=== PATIENT | male | born 1960 | race African-American/Black ===

== ENCOUNTER 2024-03-14 00:03 | Emergency (ER) | payer SELFPAY ==
[2024-03-14 00:29] VITALS: BP 128/78
--- NOTE | 2024-03-14 01:27 | ED.GENMED ---
History of Present Illness
<Severiano Sanders MD - Last Filed: 03/14/24 01:30>
General
Chief Complaint: Fall
Source: patient
Exam Limitations: none
Time Seen by Provider: 03/14/24 00:19
History of Present Illness
History of Present Illness:
63-year-old [place] Complaining of some pain all over. Admits his primary issue is he is homeless. Denies headache loss of consciousness syncope chest pain shortness of breath abdominal pain etc.
Past History
<Severiano Sanders MD - Last Filed: 03/14/24 01:30>
Past History
ED Past Medical History: Psychiatric
ED Past Surgical History: None
Social History
Tobacco: Smoker
Alcohol: None
Personal: Single
Living: homeless
Employment: Not employed
Family History
Family History: Unable to obtain
Review of Systems
<Severiano Sanders MD - Last Filed: 03/14/24 01:30>
Review of Systems
All Other Systems: Not applicable
Constitutional: Denies fever or chills
Respiratory: Reports no symptoms
Cardiac: Reports no symptoms
ABD/GI: Reports no symptoms
Phy Exam
<Severiano Sanders MD - Last Filed: 03/14/24 01:30>
Physical Exam
Physical Exam:
GENERAL: Alert and oriented in no apparent distress. Mildly disheveled appearing. No signs of scalp trauma
EYE: Orbits normal.
NECK: Supple, nontender
ENT: Pharynx without erythema
CARDIAC: Regular rate and rhythm without any obvious murmurs.
LUNGS: Clear breath sounds,normal
ABDOMEN: Soft, without focal tenderness or distention
NEUROLOGICAL: Alert and oriented , grossly non-focal
SKIN: Warm and dry, no rash or lesion, no discoloration, skin intact.
MUSCULOSKELETAL: No edema,no deformity.Good color. No obvious bony tenderness or joint tenderness.
PSYCH: Cooperative. Somewhat rambling speech
Course
<Severiano Sanders MD - Last Filed: 03/14/24 01:30>
Orders/Labs/Results
Orders:
Orders
03/14/24 00:52
Case Management Consult ONCE
Case Management Consult: Discharge Planning
Vital Signs
Initial and Last Documented VS:
Initial Vital Signs
Temp Pulse Resp Pulse Ox
36.7 C 61 19 100
03/14/24 00:06 03/14/24 00:06 03/14/24 00:06 03/14/24 00:06
Last Documented Vital Signs
Temp Pulse Resp BP Pulse Ox
36.6 C 58 14 126/74 98
03/14/24 00:29 03/14/24 02:00 03/14/24 02:00 03/14/24 10:23 03/14/24 10:23
<Kevin Dinh DO - Last Filed: 03/14/24 10:26>
Orders/Labs/Results
Orders:
Orders
03/14/24 00:52
Case Management Consult ONCE
Case Management Consult: Discharge Planning
Vital Signs
Initial and Last Documented VS:
Initial Vital Signs
Temp Pulse Resp Pulse Ox
36.7 C 61 19 100
03/14/24 00:06 03/14/24 00:06 03/14/24 00:06 03/14/24 00:06
Last Documented Vital Signs
Temp Pulse Resp BP Pulse Ox
36.6 C 58 14 126/74 98
03/14/24 00:29 03/14/24 02:00 03/14/24 02:00 03/14/24 10:23 03/14/24 10:23
<Severiano Sanders MD - Last Filed: 03/14/24 01:30>
MDM/Problems Addressed
Differential Diagnosis Includes:
Patient has no signs of any acute trauma warranting radiologic testing. In addition he is medically stable and in no distress. No reason for screening labs at this time. Await case management for placement
<Severiano Sanders MD - Last Filed: 03/14/24 01:30>
Data Reviewed
Review of Other/Old Records Reveals: Labs and Records
<Kevin Dinh DO - Last Filed: 03/14/24 10:26>
*Critical Care Note
Total Time (30-74mins, 75-104mins- exclusive of procedures): Not Applicable
<Kevin Dinh DO - Last Filed: 03/14/24 10:26>
Update Note
Update Note:
I evaluated the patient at bedside at 9:40 AM. The patient is demanding to leave now. He was seen by social worker psychiatric who has offered him and trying to arrange for a Lyft at around 10:30 AM to get him to the motel. Patient is demanding to be
discharged at this time.
ED Attending Note
<Severiano Sanders MD - Last Filed: 03/14/24 01:30>
-
Portions of this chart may have been created with voice recognition software.� Occasional wrong word or��sound alike� substitutions may have occurred due to the inherent limitations of voice recognition software.
Discharge Plan
Departure
Patient Disposition: Home (Routine Discharge)
Date of Disposition: 03/14/24
Time of Disposition: 09:38
Patient with high blood pressure during this ER visit?: Yes
Discharge Problem:
Fall
Instructions: Fall Prevention for Older Adults
Prescriptions:
No Action
No Current Medications
Referrals:
NONE,* [Family Provider] -
Activity Restrictions/Additional Instructions:
Follow-up with primary care doctor. Return if worse or any other concerns.
Interventions
Interventions:
*Risk Screen - Suicide Last Done: 03/14/24 00:06
*General Assessment Last Done: 03/14/24 00:06
*Neglect/Abuse Screening Last Done: 03/14/24 00:06
ED- Fall Risk Assessment Last Done: 03/14/24 07:43
*ED COVID-19 Vaccine History Last Done: 03/14/24 00:29
*Nursing Disposition Last Done: 03/14/24 10:23
ED-Musculoskeletal Assessment Last Done: 03/14/24 00:29
ED- Neurological Assessment Last Done: 03/14/24 00:29
ED-Skin Assessment Last Done: 03/14/24 00:29
Discharge Date and Time
Discharge Date/Time: 03/14/24 10:24
Print Language: GREEK
[2024-03-14 02:00] VITALS: BP 129/78
--- NOTE | 2024-03-14 09:52 | CM ---
CM following re: discharge planning.
CM consulted to assist the pt with discharge planning in ED.
Reviewed pt's chart, met with pt.
Pt present sitting on the chair, AAOx3 with decreased in sight, decreased judgement, irritable mood, suspicious affect, chronic mental health component with homelessness attitude to get everything here and now. From the first minutes of the
interview pt made a strong request in a polite and irritable manner to get him to a motel or any possibility to rent a room for a night. Pt requested very limited space to this counter caser to engage the pt in conversation regarding his housing
situation, family support, etc. Pt made it very clear again and again stating: 'i am here not to answer your questions, you are here to help me to get to a motel'. Pt did show me he has money, shows his ID and address in [place]. Pt stated he has
been homeless just 3 nights, prior was staying at [facility] on [address] in [place] and pt made a strong request not to send him to [place]. Pt stated he had to fight for his independency with other homeless
people at the fpc. Pt asked not to send him to any fpc. Also, pt stated he is a and did not allow me to get any more information regarding possible VA benefits.
CM tried to obtain a voucher for 5 days staying at the hotel, called [facility] and left messages. Pt is aware of the above and made a strong request to send him to nearest motel. CM found
nearest motel: [facility] at [address] [place] [place] [address] [address], . CM called [facility] motel, confirmed they do have rooms available and the cost is 495.00 per day.
Pt is aware, expressed his agreement and pt requested help to get there. manager [employer] is scheduling a Lyft for 10:30 -11.00 am. CM provided pt with the [facility]. Pt expressed his great appreciation.
Pt will get a food box.
D/C plan: per pt's strong request, [facility]. Lyft to transport.
[2024-03-14 10:23] VITALS: BP 126/74
== END 2024-03-14 10:24 | disposition home or self-care (01) ==
LOC: EMR 00:03
PROVIDERS: EMERGENCY PHYSICIAN Emergency Medicine
DX: Z04.89 Encounter for examination and observation for other specified reasons (principal); W19.XXXA Unspecified fall, initial encounter; F17.200 Nicotine dependence, unspecified, uncomplicated; Z59.00 Homelessness unspecified
CPT/HCPCS: 99283

== ENCOUNTER 2024-04-03 19:32 | Emergency (ER) | payer SELFPAY ==
[2024-04-03 19:33] VITALS: BP 149/84
--- NOTE | 2024-04-03 23:02 | ED.GENMED ---
History of Present Illness
General
Chief Complaint: Social Service Referral
Source: patient
Exam Limitations: none
Time Seen by Provider: 04/03/24 21:12
Nursing documentation reviewed up to this point in time: agreed with
History of Present Illness
History of Present Illness:
64-year-old male with history as documented presents to the ER seeking senior living. He was planning to go for [employer] senior living at the local [facility]; apparently he was post to take a shuttle there but missed it and came to the ER here to get out of the
rain. He has no physical complaints.
Past History
Past History
ED Past Medical History: Psychiatric
ED Past Surgical History: None
Social History
Tobacco: Smoker
Alcohol: None
Personal: Single
Living: homeless
Employment: Not employed
Family History
Family History: Unable to obtain
Review of Systems
Review of Systems
All Other Systems: ROS reviewed and negative except as documented in HPI and ROS
Respiratory: Denies trouble breathing
Cardiac: Denies chest pain
ABD/GI: Denies abdominal pain
Musculoskeletal: Denies neck pain or back pain
Neurological: Denies headache
Phy Exam
Physical Exam
Physical Exam:
General: Awake, alert; no acute distress
Head: Normocephalic, atraumatic
Eyes: Conjunctiva normal
Throat: Airway intact, handling secretions
Neck: Trachea midline
Lungs: Clear to auscultation bilaterally, no wheezing, rales, rhonchi
Heart: Regular rate and rhythm, no murmurs, gallops, or rubs
Neuro: No gross deficits, ambulatory
Extremities: No edema in extremities, warm and well-perfused
Scores
Heart Failure Risk
Heart Failure Risk Score: Not Applicable
Heart Score for Chest Pain Patients
STEMI patient?: Not applicable
Withdrawal Assessment of Alcohol
Withdrawal Assessment Completed?: Not applicable
Course
Vital Signs
Initial and Last Documented VS:
Initial Vital Signs
Temp Pulse Resp BP Pulse Ox
36.7 C 71 19 149/84 99
04/03/24 19:33 04/03/24 19:33 04/03/24 19:33 04/03/24 19:33 04/03/24 19:33
Last Documented Vital Signs
Temp Pulse Resp BP Pulse Ox
36.7 C 71 19 149/84 99
04/03/24 19:33 04/03/24 19:33 04/03/24 19:33 04/03/24 19:33 04/03/24 19:33
MDM/Problems Addressed
Differential Diagnosis Includes:
Medical screening
MDM/Problems Addressed:
64-year-old male presents to the ER seeking senior living; he has no physical complaints. Requesting food and dry socks which I provided. Patient will wait in waiting room to stay out of the rain until he can make it to local senior living. He is pleased
with this plan. All questions answered.
*Pulse Oximetry
Patient hypoxic: no
*Critical Care Note
Total Time (30-74mins, 75-104mins- exclusive of procedures): Not Applicable
Patient Management
Social determinants of health affecting care: Living situation and Poor social support
ED Attending Note
-
Portions of this chart may have been created with voice recognition software.� Occasional wrong word or��sound alike� substitutions may have occurred due to the inherent limitations of voice recognition software.
Discharge Plan
Departure
Patient Disposition: Home (Routine Discharge)
Date of Disposition: 04/03/24
Time of Disposition: 21:17
Patient with high blood pressure during this ER visit?: Yes
Discharge Problem:
Encounter for medical screening examination
Prescriptions:
No Action
No Current Medications
Interventions
Interventions:
*Risk Screen - Suicide Last Done: 04/03/24 19:33
*General Assessment Last Done: 04/03/24 21:00
*Neglect/Abuse Screening Last Done: 04/03/24 19:33
ED- Fall Risk Assessment Last Done: 04/03/24 21:00
*Nursing Disposition Last Done: 04/03/24 21:25
ED-Psychological Assessment Last Done: 04/03/24 21:00
Discharge Date and Time
Discharge Date/Time: 04/03/24 21:25
Print Language: MACEDONIAN
== END 2024-04-03 21:25 | disposition home or self-care (01) ==
LOC: EMR 19:32
PROVIDERS: EMERGENCY PHYSICIAN Emergency Medicine
DX: Z76.89 Persons encountering health services in other specified circumstances (principal); F17.200 Nicotine dependence, unspecified, uncomplicated
CPT/HCPCS: 99282

== ENCOUNTER 2024-04-07 03:48 | Emergency (ER) | payer SELFPAY ==
[2024-04-07 03:55] VITALS: BP 156/86
--- NOTE | 2024-04-07 04:25 | EDRN ---
Pt walking around the room, organizing his money and putting bags in wheelchair while talking with this RN. Pt says he wanted to go to the [facility] but it is closed today. Pt says it is open on Monday and he plans to go there later today
'I will have to make some phone calls.' Pt says he is homeless, does not have any family/friends in the area. Pt says he came in because he is cold and has nowhere to go. Pt denies pain. Pt requested to go to the [employer] to get
something to eat. He will return to room to sleep. Pt ambulatory pushing wheelchair.
--- NOTE | 2024-04-07 04:47 | EDRN ---
Pt given boxed meal
--- NOTE | 2024-04-07 08:22 | ED.GENMED ---
History of Present Illness
General
Chief Complaint: Hyper/Hypo Thermia Problem
Source: patient
Exam Limitations: none
Time Seen by Provider: 04/07/24 06:12
Nursing documentation reviewed up to this point in time: agreed with
History of Present Illness
History of Present Illness:
Patient presents to ED for evaluation secondary to intermittent headache, sore throat, ear pain and intermittent cough. However, patient does also state that he is currently homeless and needs to stay for the night. Denies fever or chills. Denies
vomiting. Denies diarrhea. Denies chest pain. Denies loss of appetite. Denies weight loss.
Past History
Past History
ED Past Medical History: Psychiatric
ED Past Surgical History: None
Social History
Tobacco: Smoker
Alcohol: None
Personal: Single
Living: homeless
Employment: Not employed
Family History
Family History: Unable to obtain
Review of Systems
Review of Systems
Allergies reviewed?: Yes
All Other Systems: ROS reviewed and negative except as documented in HPI and ROS
Constitutional: Reports no symptoms; Denies fever or chills
EENT: Reports sore throat and other (Ear pain)
Respiratory: Reports cough; Denies trouble breathing
Cardiac: Reports no symptoms
ABD/GI: Reports no symptoms; Denies vomiting or diarrhea
Musculoskeletal: Reports no symptoms
Skin: Reports no symptoms
Neurological: Reports headache; Denies dizzy or weakness
Phy Exam
Physical Exam
Physical Exam:
Physical Exam
General: no apparent distress, not acutely ill. afebrile
Head: nc/at. eomi
Neck: supple. normal range of motion. normal posterior pharynx. TM: clear
Heart: s1/s2 regular rate and rhythm, no murmur.
Lungs: no acute respiratory distress. clear bilaterally
Abdomen: normal bowel sounds. not tender.
Neuro: alert and oriented. no focal neurological deficits
Skin: no rash
Psychiatric: well kept. interactive and cooperative
Extremities: no edema. no calf tenderness.
Course
Orders/Labs/Results
Orders:
Orders
04/07/24 08:22
Case Management Consult ONCE
Case Management Consult: Discharge Planning
Vital Signs
Initial and Last Documented VS:
Initial Vital Signs
Temp Pulse Resp BP Pulse Ox
97.9 F 66 18 156/86 97
04/07/24 03:55 04/07/24 03:55 04/07/24 03:55 04/07/24 03:55 04/07/24 03:55
Last Documented Vital Signs
Temp Pulse Resp BP Pulse Ox
97.9 F 66 18 156/86 97
04/07/24 03:55 04/07/24 03:55 04/07/24 03:55 04/07/24 03:55 04/07/24 03:55
MDM/Problems Addressed
MDM/Problems Addressed:
Patient noted to be resting in room, sleeping, without any difficulty. Patient needed to be aroused to be examined. Patient with normal exam findings. Patient requesting to be seen by case management, as he is currently homeless. Patient does
not have any acute medical conditions, which warrants any further workup at this time.
Pt evaluated by case management. Resources provided provided prior to discharge.
*Critical Care Note
Total Time (30-74mins, 75-104mins- exclusive of procedures): Not Applicable
ED Attending Note
-
Portions of this chart may have been created with voice recognition software.� Occasional wrong word or��sound alike� substitutions may have occurred due to the inherent limitations of voice recognition software.
Discharge Plan
Departure
Patient Disposition: Home (Routine Discharge)
Date of Disposition: 04/07/24
Time of Disposition: 08:27
Patient with high blood pressure during this ER visit?: Yes
Discharge Problem:
Viral illness, Homelessness
Instructions: Upper respiratory infection in adults - Discharge instructions
Prescriptions:
No Action
No Current Medications
Referrals:
NONE,* [Family Provider] -
Activity Restrictions/Additional Instructions:
As discussed, please follow-up with your primary care physician and/or local medical clinic with any further concerns.
Interventions
Interventions:
*Risk Screen - Suicide Last Done: 04/07/24 03:51
*General Assessment Last Done: 04/07/24 04:24
*Neglect/Abuse Screening Last Done: 04/07/24 03:51
ED- Fall Risk Assessment Last Done: 04/07/24 10:12
*ED COVID-19 Vaccine History Last Done: 04/07/24 04:24
*Nursing Disposition Last Done: 04/07/24 10:12
ED- Neurological Assessment Last Done: 04/07/24 04:24
ED-Skin Assessment Last Done: 04/07/24 04:24
Discharge Date and Time
Discharge Date/Time: 04/07/24 10:20
Print Language: BURUNDIAN
--- NOTE | 2024-04-07 08:32 | CM ---
Addendum entered by Eve Farr RN 04/07/24 10:20:
HELADIO is able to help with a hotel room at [facility]. Patient is agreeable to plan. CM provided patient with written number for [employer] and advised patient to call tomorrow for further assistance.
Addendum entered by Eve Farr RN 04/07/24 09:10:
CM met with patient in room. Patient stated that he would be agreeable to a hotel. If that was not available, then he would be agreeable to a ride to the [employer] pick up [employer] points. CM did advise patient that [facility] are not open tonight.
Original Note:
CM was consulted for homelessness. CM left message for HELADIO to discuss possible housing assistance.
== END 2024-04-07 10:20 | disposition home or self-care (01) ==
LOC: EMR 03:48
PROVIDERS: EMERGENCY PHYSICIAN Emergency Medicine
DX: B34.9 Viral infection, unspecified (principal); F17.200 Nicotine dependence, unspecified, uncomplicated; Z59.00 Homelessness unspecified
CPT/HCPCS: 99283

== ENCOUNTER 2024-04-08 22:53 | Emergency (ER) | payer OTHER, SELFPAY ==
[2024-04-08 22:59] VITALS: BP 157/88
[2024-04-09 00:18] VITALS: BMI 25.1
--- NOTE | 2024-04-09 01:16 | ED.GENMED ---
History of Present Illness
General
Chief Complaint: Weakness
Source: patient
Exam Limitations: none
Time Seen by Provider: 04/09/24 01:03
History of Present Illness
History of Present Illness:
This is a 64 year old male that comes in with multiple complaints. Patient is homeless and states that he felt like he couldn't walk anymore. State that he has chest pain, nausea, headache and dizziness. States that this started on the of
March. Denies any fever, chills, SOB, abd pain, vomiting, diarrhea, urinary burning.
Past History
Past History
ED Past Medical History: Arrthythmia (Atrial fib) and Psychiatric (Depression. Schizo)
ED Past Surgical History: None
Social History
Tobacco: Smoker
Alcohol: None
Personal: Single
Living: homeless
Employment: Not employed
Family History
Family History: Unable to obtain
Review of Systems
Review of Systems
All Other Systems: ROS reviewed and negative except as documented in HPI and ROS
Constitutional: Reports no symptoms; Denies fever or chills
EENT: Reports no symptoms
Respiratory: Denies cough or trouble breathing
Cardiac: Reports chest pain
ABD/GI: Reports nausea; Denies abdominal pain, vomiting or diarrhea
: Reports no symptoms; Denies dysuria, frequency or urgency
Musculoskeletal: Reports no symptoms
Skin: Reports no symptoms
Neurological: Reports dizzy and headache
Psychiatric: Reports no symptoms
Phy Exam
General Physical Exam
General Presentation: no apparent distress
General age: appears stated age
General Skin: warm and dry
General Habitus: normal
General Mental: alert
General Hydration: appears well hydrated
ENT Exam
ENT Exam: TM's normal, pharynx normal and neck supple
Eye Exam
Eye Exam: EOMI
Cardiovascular Exam
Cardiovascular Exam: regular rate/rhythm, no edema and normal peripheral pulses
Pulmonary Exam
Pulmonary Exam: lungs clear, no respiratory distress, no rales, chest non tender, no crackles, no rhonchi, no wheezing and other (Dry Cough noted)
Gastrointestinal Exam
Gastrointestinal Exam: normal bowel sounds, non tender, soft, no organomegaly, no pulsatile mass and non distended
Musculoskeletal Exam
Musculoskeletal Exam: full ROM and no edema
Skin Exam
Skin Exam: normal color, warm/dry, no rash and no petechia
Psychiatric Exam
Psychiatric Exam: normal mood/affect
Course
Orders/Labs/Results
Orders:
Orders
04/09/24 01:16
CR Chest - 2 Views Urgent
Comment:
Reason For Exam: Chest pain
04/09/24 01:24
Electrocardiogram (*1) Urgent
Reason for Study: Chest Pain
EKG- Treatment ONCE
04/09/24 01:29
Complete Blood Count/With Diff Urgent
Comprehensive Metabolic Panel Urgent
Troponin I Urgent
Abnormal Lab Results
04/09/24
01:29
WBC 4.5 L 10^3/uL
(4.8-10.8)
RBC 4.18 L 10^6/uL
(4.70-6.10)
Hgb 12.1 L g/dL
(13.0-18.0)
Hct 37.6 L %
(39.0-52.0)
MCHC 32.2 L g/dL
(33.0-37.0)
Absolute Lymphs (auto) 0.8 L 10^3/uL
(1.2-3.4)
Lymphocytes % 17.8 L %
(20.5-51.1)
Potassium 3.4 L mmol/L
(3.5-5.1)
Creatinine 0.6 L mg/dL
(0.7-1.3)
Glucose 160 H mg/dl
(70-99)
04/09/24 01:29
04/09/24 01:29
Leukopenia slight, H/H slightly low. hyperglycemia. Troponin <0.012
Vital Signs
Initial and Last Documented VS:
Initial Vital Signs
Temp Pulse Resp BP Pulse Ox
98.2 F 62 20 157/88 98
04/08/24 22:59 04/08/24 22:59 04/08/24 22:59 04/08/24 22:59 04/08/24 22:59
Last Documented Vital Signs
Temp Pulse Resp BP Pulse Ox
98.2 F 55 18 116/73 98
04/08/24 22:59 04/09/24 01:30 04/09/24 01:30 04/09/24 01:30 04/09/24 01:30
MDM/Problems Addressed
Differential Diagnosis Includes:
Homeless, Coronary syndrome.
MDM/Problems Addressed:
This is a 64 year old male that comes in with multiple complaints. States that he has nausea, headache and dizziness. State that he felt like he couldn't walk and that this started on the . Patient is homeless.
Will check labs, Feed patient and get Chest X ray.
patient was just seen by Case management 2 days ago and given out patient information. Patient blood work is normal. Will discharge.
Chronic conditions affecting care:
NA
Acute Exacerbation and/or Progression of Chronic Illness:
NA
*Pulse Oximetry
Patient hypoxic: no
*Critical Care Note
Total Time (30-74mins, 75-104mins- exclusive of procedures): Not Applicable
ED Attending Note
-
Portions of this chart may have been created with voice recognition software.� Occasional wrong word or��sound alike� substitutions may have occurred due to the inherent limitations of voice recognition software.
Discharge Plan
Departure
Patient Disposition: Home (Routine Discharge)
Date of Disposition: 04/09/24
Time of Disposition: 02:47
Patient with high blood pressure during this ER visit?: No
Condition: Good
Covid-19: Not Applicable
Discharge Problem:
Homelessness
Prescriptions:
No Action
No Current Medications
Referrals:
UNKNOWN - PT DOES,NOT KNOW [Family Provider] -
Activity Restrictions/Additional Instructions:
As discussed,your blood work is normal. You were seen here 2 days ago and given outpatient resources. Please follow up with the Resources that you were given. IF YOU HAVE ANY OTHER CONCERNS PLEASE RETURN TO THE EMERGENCY ROOM.
Interventions
Interventions:
*Risk Screen - Suicide Last Done: 04/08/24 22:59
*General Assessment Last Done: 04/08/24 22:59
*Neglect/Abuse Screening Last Done: 04/08/24 22:59
ED- Fall Risk Assessment Last Done: 04/08/24 22:59
*ED COVID-19 Vaccine History Last Done: 04/08/24 22:59
ED- Cardiac Assessment Last Done: 04/09/24 00:37
ED- Neurological Assessment Last Done: 04/09/24 00:37
ED-Psychological Assessment Last Done: 04/09/24 00:37
ED- Pulmonary Assessment Last Done: 04/09/24 00:37
Discharge Date and Time
Print Language: SYRIAC
[2024-04-09 01:30] VITALS: BP 116/73
[2024-04-09 01:44] LABS: % Basophils 0.7 % (0-2); % Immature Granulocytes 0.4 % (0-0.5); % Lymphocytes 17.8 % (20.5-51.1); % Neutrophils 70.1 % (42.2-75.2); Absolute Eosinophils 0.1 10^3/uL (0-0.7); Absolute Lymphocytes 0.8 10^3/uL (1.2-3.4); Absolute Monocytes 0.4 10^3/uL (0.1-0.6); Absolute Neutrophils 3.2 10^3/uL (1.4-6.5); Hematocrit 37.6 % (39.0-52.0); Hemoglobin 12.1 g/dL (13.0-18.0); Mean Corp Hgb Conc. 32.2 g/dL (33.0-37.0); Mean Corpuscular Hgb 28.9 pg (27.0-31.0); Mean Platelet Volume 9.3 fL (7.4-10.4); Nucleated Red Blood Cells % 0 % (-); Platelet Count 196 10^3/uL (130-400); Red Blood Cell Count 4.18 10^6/uL (4.70-6.10); Red Cell Dist. Width 13.9 % (11.5-14.5); White Blood Cell Count 4.5 10^3/uL (4.8-10.8)
[2024-04-09 02:00] VITALS: BP 122/64
[2024-04-09 02:03] LABS: ALT (SGPT) 23 U/L (0-50); AST (SGOT) 24 U/L (17-59); Albumin 3.9 g/dl (3.5-5.0); Alkaline Phosphatase 50 U/L (38-126); Blood Urea Nitrogen 12 mg/dl (9-20); Calcium 8.9 mg/dl (8.4-10.2); Carbon Dioxide 29 mmol/L (22-30); Chloride 102 mmol/L (98-107); Estimated Creatinine Clearance > 125 ml/min; Glucose 160 mg/dl (70-99); Potassium 3.4 mmol/L (3.5-5.1); Sodium 141 mmol/L (135-145); Total Bilirubin 0.4 mg/dl (0.2-1.3); Total Protein 6.8 g/dl (6.3-8.2); eGFR > 60.00
[2024-04-09 02:09] LABS: Troponin I < 0.012 ng/ml
[2024-04-09 03:00] VITALS: BP 111/69
[2024-04-09 04:00] VITALS: BP 105/64
[2024-04-09 07:40] VITALS: BP 124/61
--- NOTE | 2024-04-09 08:08 | EDRN ---
Pt has been discharged overnight, gave pt discharge paperwork, pt states he was going to use the phone and go. Pt was given the phone at that time at 0740. Came to check on the patient now and he said 'I have the right to use the phone and you will
have to wait until I do so or I will call police on you.' Pt agitated and keeps saying he will call 911 if I don't leave him, 'I will let you know when I'm ready.'
--- NOTE | 2024-04-09 08:14 | EDRN ---
Pt cursing and being verbally abusive to staff after ore charger came to ask pt to leave. Pt is ranting and using expletives.
== END 2024-04-09 08:29 | disposition home or self-care (01) ==
LOC: EMR 22:53
PROVIDERS: Clinical Nurse Specialist Family Health; EMERGENCY PHYSICIAN Emergency Medicine
DX: R53.1 Weakness (principal); R07.89 Other chest pain; R11.0 Nausea; R51.9 Headache, unspecified; R42 Dizziness and giddiness; Z59.00 Homelessness unspecified; D72.819 Decreased white blood cell count, unspecified; F17.200 Nicotine dependence, unspecified, uncomplicated
CPT/HCPCS: 99283; 80053; 84484; 85025; 93005

== ENCOUNTER 2024-04-19 19:44 | Emergency (ER) | payer OTHER, SELFPAY ==
[2024-04-19 19:48] VITALS: BP 162/105
[2024-04-19 20:12] LABS: % Basophils 0.7 % (0-2); % Eosinophils 1.5 % (0-6); % Immature Granulocytes 0.3 % (0-0.5); % Lymphocytes 25.2 % (20.5-51.1); % Monocytes 6.7 % (1.7-9.3); % Neutrophils 65.6 % (42.2-75.2); Absolute Basophils 0.1 10^3/uL (0-0.2); Absolute Eosinophils 0.1 10^3/uL (0-0.7); Absolute Lymphocytes 1.7 10^3/uL (1.2-3.4); Absolute Monocytes 0.5 10^3/uL (0.1-0.6); Absolute Neutrophils 4.4 10^3/uL (1.4-6.5); Hemoglobin 12.9 g/dL (13.0-18.0); Mean Corp Hgb Conc. 32.3 g/dL (33.0-37.0); Mean Corpuscular Hgb 28.8 pg (27.0-31.0); Mean Corpuscular Volume 89.3 fL (80.0-94.0); Mean Platelet Volume 9.5 fL (7.4-10.4); Nucleated Red Blood Cells % 0 % (-); Platelet Count 218 10^3/uL (130-400); Red Blood Cell Count 4.48 10^6/uL (4.70-6.10); Red Cell Dist. Width 13.8 % (11.5-14.5); White Blood Cell Count 6.8 10^3/uL (4.8-10.8)
[2024-04-19 20:31] LABS: Blood Urea Nitrogen 17 mg/dl (9-20); Calcium 9.5 mg/dl (8.4-10.2); Carbon Dioxide 30 mmol/L (22-30); Chloride 102 mmol/L (98-107); Glucose 91 mg/dl (70-99); Sodium 137 mmol/L (135-145); eGFR > 60.00
[2024-04-20 00:21] VITALS: BP 131/74
--- NOTE | 2024-04-20 01:01 | ED.GENMED ---
History of Present Illness
General
Chief Complaint: Musculo-Skeletal Complaint
Time Seen by Provider: 04/20/24 00:27
History of Present Illness
History of Present Illness:
64-year-old male with history of homelessness and schizophrenia presenting to the emergency department for multiple complaints. Notes diffuse body pain. He also reports auditory hallucinations, however difficulty articulating what the voices are
saying. He is also requesting a combustion engineer. He has a limited historian, tangential speech. Denies suicidal or homicidal ideation. Denies fever, chest pain, difficulty breathing, or additional acute medical complaints
Past History
Past History
ED Past Medical History: Arrthythmia (Atrial fib) and Psychiatric (Depression. Schizo)
ED Past Surgical History: None
Social History
Tobacco: Smoker
Alcohol: None
Personal: Single
Living: homeless
Employment: Not employed
Family History
Family History: Unable to obtain
Phy Exam
Physical Exam
Physical Exam:
General: Well-appearing, no clinical signs of dehydration, nontoxic and in no acute distress
HEENT: protecting airway
Neck: appears supple
CV: Normal heart rate, regular rhythm
Resp: No accessory muscle use, no increased work of breathing, lungs clear to auscultation bilaterally
Abd: Soft and non-distended, no tenderness to palpation
Extremities: No deformities, no swelling
Neuro: alert, no focal neurologic deficit
: deferred
Rectal: deferred
Psych: Tangential speech
Skin: Intact
Course
Orders/Labs/Results
Orders:
Orders
04/19/24 20:06
Basic Metabolic Panel Urgent
Complete Blood Count/With Diff Urgent
Abnormal Lab Results
04/19/24
20:06
RBC 4.48 L 10^6/uL
(4.70-6.10)
Hgb 12.9 L g/dL
(13.0-18.0)
MCHC 32.3 L g/dL
(33.0-37.0)
Creatinine 0.5 L mg/dL
(0.7-1.3)
04/19/24 20:06
04/19/24 20:06
Vital Signs
Initial and Last Documented VS:
Initial Vital Signs
Temp Pulse Resp BP Pulse Ox
97.8 F 66 18 162/105 97
04/19/24 19:48 04/19/24 19:48 04/19/24 19:48 04/19/24 19:48 04/19/24 19:48
Last Documented Vital Signs
Temp Pulse Resp BP Pulse Ox
97.8 F 55 18 131/74 98
04/19/24 19:48 04/20/24 00:21 04/20/24 00:21 04/20/24 00:21 04/20/24 00:21
MDM/Problems Addressed
MDM/Problems Addressed:
64-year-old male with history of schizophrenia presenting to the emergency department for generalized bodyaches and auditory hallucinations. Vital signs are significant for high blood pressure, however improved without intervention.
On exam patient is well-appearing, resting comfortably, sleeping during initial examination. He is afebrile, nontoxic. Regarding body aches, possible viral illness. Patient is also homeless so aches may be secondary to increased use or walking.
Patient had screening laboratory analysis, unremarkable. Patient is also reporting auditory hallucinations. No history of schizophrenia. Does not appear to be a present threat to himself or others. At this time, no indication for urgent
psychiatric treatment. Feel stable for discharge with outpatient follow-up. Return precautions discussed.
*Critical Care Note
Total Time (30-74mins, 75-104mins- exclusive of procedures): Not Applicable
ED Attending Note
-
Portions of this chart may have been created with voice recognition software.� Occasional wrong word or��sound alike� substitutions may have occurred due to the inherent limitations of voice recognition software.
Discharge Plan
Departure
Prescriptions:
No Action
No Current Medications
Referrals:
UNKNOWN - PT DOES,NOT KNOW [Family Provider] -
Interventions
Interventions:
*Risk Screen - Suicide Last Done: 04/19/24 19:48
*General Assessment Last Done: 04/19/24 19:48
*Neglect/Abuse Screening Last Done: 04/19/24 19:48
*ED COVID-19 Vaccine History Last Done: 04/20/24 00:23
ED-Musculoskeletal Assessment Last Done: 04/20/24 00:23
Discharge Date and Time
Print Language: KISWAHILI
[2024-04-20 01:27] VITALS: BP 138/72
== END 2024-04-20 02:16 | disposition home or self-care (01) ==
LOC: EMR 19:44
PROVIDERS: Physician Assistant; EMERGENCY PHYSICIAN Student in an Organized Health Care Education/Training Program
DX: R52 Pain, unspecified (principal); R03.0 Elevated blood-pressure reading, without diagnosis of hypertension; F17.200 Nicotine dependence, unspecified, uncomplicated; F20.9 Schizophrenia, unspecified; Z59.00 Homelessness unspecified
CPT/HCPCS: 99283; 80048; 85025

== ENCOUNTER 2024-04-22 02:19 | Emergency (ER) | payer OTHER, SELFPAY ==
[2024-04-22 02:32] VITALS: BP 142/70
--- NOTE | 2024-04-22 03:10 | ED.GENMED ---
History of Present Illness
General
Chief Complaint: Musculo-Skeletal Complaint
Source: patient
Time Seen by Provider: 04/22/24 03:10
Nursing documentation reviewed up to this point in time: agreed with
History of Present Illness
History of Present Illness:
Asked to see patient in the waiting room. Patient was dropped off by police. He states that he was given a 'courtesy ride 'to the hospital by police because the [facility] shelters were closed this evening. He stated that he had pain in his feet
and knees. He also wanted to talk to crisis. Patient has a baseline history of paranoia and wanted to talk to crisis. He did not want to come back into the emergency department for full medical evaluation. Patient did not want to surrender his
bags. Since the waiting room was completely empty, crisis was able to evaluate him in the waiting room. I was able to see him in the waiting room. He denied homicidal or suicidal ideation, intent, or plan. He again did not want to come back into
the emergency department. He wished to be discharged. [facility] saw him and confirmed that he did not have any SI or HI. Patient wished to be discharged.
Past History
Past History
ED Past Medical History: Arrthythmia (Atrial fib) and Psychiatric (Depression. Schizo)
ED Past Surgical History: None
Social History
Tobacco: Smoker
Alcohol: None
Personal: Single
Living: homeless
Employment: Not employed
Family History
Family History: Unable to obtain
Phy Exam
General Physical Exam
General Presentation: mild distress
General age: appears older than age
General Skin: warm and dry
General Habitus: normal
General Mental: anxious
General Hydration: appears well hydrated
Eye Exam
Eye Exam: EOMI
Pulmonary Exam
Pulmonary Exam: no respiratory distress
Musculoskeletal Exam
Musculoskeletal Exam: full ROM
Skin Exam
Skin Exam: normal color and warm/dry
Psychiatric Exam
Psychiatric Exam: paranoia
Course
Orders/Labs/Results
Orders:
Orders
04/22/24 02:50
Crisis Consult Urgent
Reason for Consult: Crisis
Vital Signs
Initial and Last Documented VS:
Initial Vital Signs
Temp Pulse Resp BP Pulse Ox
97.8 F 80 22 142/70 96
04/22/24 02:32 04/22/24 02:32 04/22/24 02:32 04/22/24 02:32 04/22/24 02:32
Last Documented Vital Signs
Temp Pulse Resp BP Pulse Ox
97.8 F 78 20 138/76 98
04/22/24 02:32 04/22/24 03:42 04/22/24 03:42 04/22/24 03:42 04/22/24 03:42
*Critical Care Note
Total Time (30-74mins, 75-104mins- exclusive of procedures): Not Applicable
ED Attending Note
-
Portions of this chart may have been created with voice recognition software.� Occasional wrong word or��sound alike� substitutions may have occurred due to the inherent limitations of voice recognition software.
Discharge Plan
Departure
Patient Disposition: Home (Routine Discharge)
Date of Disposition: 04/22/24
Time of Disposition: 03:28
Patient with high blood pressure during this ER visit?: Yes
Discharge Problem:
History of homeless
Instructions: BLOOD PRESSURE
Prescriptions:
No Action
No Current Medications
Referrals:
[facility] [Active] -
Activity Restrictions/Additional Instructions:
It was a pleasure meeting you and taking part in your care. We hope for your continued healing and wellness.
Please read discharge instructions in their entirety. However, they are for general education and may not describe your exact diagnosis at discharge. Information on your ER visit and medical conditions were discussed with you along with appropriate
follow up information...
If indicated, please take your medications as instructed and indicated on discharge paperwork.
Please schedule a follow up appointment as directed. Call to schedule an appointment
Please return to the emergency department with ANY change in, persisting, or worsening of symptoms. If any of your symptoms do not improve, or persist, or become more severe within 6-12 hours, please return to the emergency department for further
care.
Please return to the emergency department if you develop a headache, neck pain/stiffness, fever greater than 100.4F, chest pain, shortness of breath, persistent nausea, vomiting, slurred speech, difficulty walking, numbness/tingling, weakness, signs
of infection or any other symptoms that are worrisome to you.
If you have any questions or concerns please do not hesitate to call the Hospital at .
Interventions
Interventions:
*Risk Screen - Suicide Last Done: 04/22/24 03:14
*General Assessment Last Done: 04/22/24 03:14
*Neglect/Abuse Screening Last Done: 04/22/24 03:14
ED- Fall Risk Assessment Last Done: 04/22/24 03:14
*ED COVID-19 Vaccine History Last Done: 04/22/24 03:14
*Nursing Disposition Last Done: 04/22/24 03:42
Discharge Date and Time
Discharge Date/Time: 04/22/24 03:44
Print Language: PALAUAN
[2024-04-22 03:42] VITALS: BP 138/76
== END 2024-04-22 03:44 | disposition home or self-care (01) ==
LOC: EMR 02:19
PROVIDERS: EMERGENCY PHYSICIAN Student in an Organized Health Care Education/Training Program
DX: F22 Delusional disorders (principal); F17.200 Nicotine dependence, unspecified, uncomplicated; Z59.00 Homelessness unspecified
CPT/HCPCS: 99283

== ENCOUNTER 2024-11-13 19:50 | Emergency (ER) | payer MEDICARE, OTHER, SELFPAY ==
--- NOTE | 2024-11-13 22:18 | ED.GENMED ---
History of Present Illness
General
Chief Complaint: Crisis Evaluation
Source: patient and other (302 report)
Exam Limitations: none
Time Seen by Provider: 11/13/24 20:16
Nursing documentation reviewed up to this point in time: agreed with
History of Present Illness
History of Present Illness:
64-year-old male mental illness send in by special education supervisor at the [facility] patient apparently not caring for himself malodorous concern is not taking his meds, here he is cooperative, states he supposed to go to a facility in [place] he is
eating a dinner tray
Past History
Past History
ED Past Medical History: Arrthythmia (Atrial fib) and Psychiatric (Depression. Schizo)
ED Past Surgical History: None
Social History
Tobacco: Smoker
Alcohol: None
Personal: Single
Living: homeless
Employment: Not employed
Family History
Family History: Unable to obtain
Review of Systems
Review of Systems
All Other Systems: Not applicable
Phy Exam
Physical Exam
Physical Exam:
Physical Exam
General: no apparent distress, not acutely ill
Neck: No jaundice
Heart: s1/s2 regular rate and rhythm, no murmur. equal radial pulses.
Lungs: no acute respiratory distress.
Neuro: alert and oriented. no focal neurological deficits
Skin: no rash
Psychiatric: Cooperative, tangential not hallucinating
Extremities: no edema.
Course
Orders/Labs/Results
Orders:
Orders
11/13/24 20:11
Crisis Consult Urgent
Reason for Consult: psych
11/14/24 00:23
Electrocardiogram (*1) Stat
Reason for Study: Other
Other Reason for Exam: overdose
EKG- Treatment ONCE
Alcohol Urgent
Complete Blood Count/With Diff Urgent
Comprehensive Metabolic Panel Urgent
Urine Drug Abuse Screen Urgent
Vital Signs
Initial and Last Documented VS:
Initial Vital Signs
Resp
18
11/13/24 19:53
Last Documented Vital Signs
Resp Pulse Ox
18 99
11/13/24 19:53 11/13/24 22:20
MDM/Problems Addressed
Differential Diagnosis Includes:
Psychosis mental illness social stressors
Chronic conditions affecting care: Psychiatric illness
Acute Exacerbation and/or Progression of Chronic Illness: Psychiatric illness
*Pulse Oximetry
SaO2: 99
Oxygen Mode of Delivery: Room air
Patient hypoxic: no
*Critical Care Note
Total Time (30-74mins, 75-104mins- exclusive of procedures): Not Applicable
Update Note
Update Note:
Discussed with crisis await telepsych evaluation
302 upheld, patient refusing blood work
ED Attending Note
-
Portions of this chart may have been created with voice recognition software.� Occasional wrong word or��sound alike� substitutions may have occurred due to the inherent limitations of voice recognition software.
Discharge Plan
Departure
Prescriptions:
No Action
No Current Medications
Referrals:
UNKNOWN - PT NOT,INTERVIEWE [Family Provider]
Interventions
Interventions:
*Risk Screen - Suicide Last Done: 11/13/24 19:54
*General Assessment Last Done: 11/13/24 19:54
*Neglect/Abuse Screening Last Done: 11/13/24 19:55
*ED- Fall Risk Assessment Last Done: 11/13/24 19:54
*ED COVID-19 Vaccine History Last Done: 11/13/24 19:54
ED-Psychological Assessment Last Done: 11/13/24 20:00
Discharge Date and Time
Print Language: TAJIK
[2024-11-14 06:26] VITALS: BP 117/77
[2024-11-14] MEDS: HALDOL 5 MG IM (06:32)
--- NOTE | 2024-11-14 11:36 | ED.CRISIS ---
ED Crisis Note
ED Crisis Note
Subjective:
The patient is refusing any studies
Assessment/Plan:
I spoke to crisis. [facility] want him to have blood work and EKG. The patient has been here for many hours and continues to refuse additional studies. He is currently under 302. He did receive
Haldol earlier in the day.
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
[2024-11-15 08:58] VITALS: BP 143/79
[2024-11-15 09:38] LABS: Hematocrit 40.8 % (39.0-52.0); Hemoglobin 13.1 g/dL (13.0-18.0); Mean Corp Hgb Conc. 32.1 g/dL (33.0-37.0); Mean Corpuscular Volume 88.5 fL (80.0-94.0); Nucleated Red Blood Cells % 0 % (-); Platelet Count 175 10^3/uL (130-400); Red Cell Dist. Width 12.9 % (11.5-14.5)
[2024-11-15 10:00] LABS: ALT (SGPT) 18 U/L (0-50); AST (SGOT) 30 U/L (17-59); Acetaminophen < 10 ug/ml (10-30); Albumin 3.8 g/dl (3.5-5.0); Alkaline Phosphatase 45 U/L (38-126); Blood Urea Nitrogen 10 mg/dl (9-20); Calcium 9.0 mg/dl (8.4-10.2); Carbon Dioxide 32 mmol/L (22-30); Chloride 105 mmol/L (98-107); Glucose 94 mg/dl (70-99); Potassium 4.4 mmol/L (3.5-5.1); Salicylate < 1.0 mg/dl (2.0-20.0); Sodium 138 mmol/L (135-145); Total Protein 7.0 g/dl (6.3-8.2); eGFR > 60.00
--- NOTE | 2024-11-15 17:01 | W.PN.UPDATE ---
Update Note
Progress Note Update
patient is very pleasant today. he actually stipulated and was committed to 20 days of in patient rx and hopefully [facility] will accept him. his appetite is great. he is quite cooperative. we are seeking a bed at [facility] which hopefully ultimately will help
with finding him housing. he would like to go to a [facility] dom[facility]
[2024-11-15 19:16] VITALS: BP 132/80
[2024-11-16 11:12] LABS: Urine Character Clear (Clear)
[2024-11-16 11:14] VITALS: BP 152/86
--- NOTE | 2024-11-16 13:25 | W.PN.UPDATE ---
Update Note
Progress Note Update
patient seen chart reviewed. patient was cooperative and pleasant. asked which [facility] we were looking at for him...likely [place]. he hopes to be placed eventually at a domiciliary. labs look ok. ecg w bradycardia which has been noted in the past.
good appetite. patient is not very revealing of himself but no major issues noted in the past 24 hours. has not required any prn's for agitation. .
[2024-11-16 15:54] VITALS: BP 154/78
[2024-11-16 21:19] VITALS: BP 139/76
[2024-11-17 09:49] VITALS: BP 147/73
--- NOTE | 2024-11-17 15:04 | W.PN.UPDATE ---
Update Note
Progress Note Update
mr bui has been denied by [facility] for lack of acuity. they feel he is more of a disposition case and we have been instructed to call monday am to talk to cm about disposition. he is eating well.. while he wants to leave he offers no
complaints. he is at this point on no psychotropic meds. frankly since the first day when he was hostile and would give no hx he has been largely cooperative. still not giving any history but he has been pleasant and cooperative
[2024-11-17 23:12] VITALS: BP 134/76
--- NOTE | 2024-11-18 09:20 | EDRN ---
Pt to BR at this time.
[2024-11-18 09:24] VITALS: BP 161/82
--- NOTE | 2024-11-18 09:35 | EDRN ---
body and fender worker in to see pt and update pt on plan of placing pt.
--- NOTE | 2024-11-18 09:35 | EDRN ---
Pt received breakfast at this time.
--- NOTE | 2024-11-18 09:40 | EDRN ---
Pt eating breakfast at this time.
--- NOTE | 2024-11-18 10:28 | EDRN ---
Peter crisis work updated on medications. Pt states he is on no medications and has no pharmacy. This RN asked [employer] if she could look into it. Also told EKG done. Kelvin earlier was in room at mamie 9:35 and was discussing placement
options w/ pt. Pt became very heated and started speaking very loudly, placement options [facility] [place] [facility] [place] which pt does not like and one in [facility] which pt was also not liking. Pt was okay w/ [facility] placement. Pt did calm
himself down. Afterwards pt allowed the repeat EKG and was mumbling throughout process.
--- NOTE | 2024-11-18 11:38 | EDRN ---
Pt was given remote and would not give it back (tech did not know that crisis pts cannot have remote). Pt requested a public speaking instructor and his phone calls and an update on his status as to placement. Kelvin, his sanitation worker, was updated and said he
will be in to see pt.
--- NOTE | 2024-11-18 11:40 | EDRN ---
Per [facility] pt is on no medications at all.
--- NOTE | 2024-11-18 12:05 | EDRN ---
Pt at this time getting agitated and asking for an update, phone and now pt advocate. Kelvin from crisis informed and will be in to see pt. Pt was updated at this time. Pt talking and mumbling to himself loudly at this time while watching TV.
--- NOTE | 2024-11-18 13:00 | EDRN ---
service parts coordinator was informed of pt's request for pt advocate at this time and was calling to get one for pt.
--- NOTE | 2024-11-18 13:15 | EDRN ---
Pt was given lunch tray and informed that discharge specialist attempting to get a pt advocate to see pt. This RN also called Kelvin, grain farmworker, and he still needs to ask about pt contacting a public safety police. Pt was updated on this as well. Kelvin is still
working on the case.
--- NOTE | 2024-11-18 14:00 | EDRN ---
Pt advocate Becky in speaking w/ pt at this time.
--- NOTE | 2024-11-18 14:00 | EDRN ---
Pt was asking to call police and when told he cannot call police from an ER requested to speak to security though security said he needs to speak w/ crisis. THis RN went to crisis and spoke and told Kelvin his hoe worker about pt's requests.
--- NOTE | 2024-11-18 14:33 | EDRN ---
Pt advocate said pt requested a hospital band on his wrist which the RN did so. Pt also requested a copy of his 302 and Pt advocate supplying that to pt. Pt to be going to [facility] at 19:30 today and foundry worker apprentice will be in to see him. Pt also
asking about his belongings which are in security. Pt assured he would receive his belongings at this discharge and will be able to check them then.
--- NOTE | 2024-11-18 16:42 | EDRN ---
Pt given coffee he asked for. Pt due to leave at 18:00 for [facility] in [place] [facility]. [facility] ED PCT has ordered a supper tray for pt.
[2024-11-18 17:00] VITALS: BP 133/83
--- NOTE | 2024-11-18 17:28 | EDRN ---
frog or oyster farmworker Kelvin was speaking w/ pt and informed by this RN pt is refusing ativan for trip to [facility].
--- NOTE | 2024-11-18 18:35 | EDRN ---
Pt's supper arrived just as pt leaving. Pt did not get to eat prior to leaving.
== END 2024-11-18 18:40 ==
LOC: EMR 19:50
PROVIDERS: Emergency Medicine; CONSULT PHYSICIAN Psychiatry & Neurology Psychiatry; EMERGENCY PHYSICIAN Emergency Medicine
DX: F29 Unspecified psychosis not due to a substance or known physiological condition (principal); F17.200 Nicotine dependence, unspecified, uncomplicated; Z59.01 Sheltered homelessness; Z56.0 Unemployment, unspecified; Z59.00 Homelessness unspecified
CPT/HCPCS: 96372; 99285; 80053; 80143; 80179; 80306; 81003; 82077; 85025; 93005